=== PATIENT | male | born 1995 | race African-American/Black ===

== ENCOUNTER 2020-12-19 06:56 | Inpatient (IN) ==
[2020-12-19] MEDS ORDERED: Mag Hydrox/Al Hydrox/Simeth 30 ML UDC PO PRN (10:00)
[2020-12-19] MEDS ORDERED: Ibuprofen 400 MG TABLET PO PRN (10:00)
[2020-12-19] MEDS ORDERED: *HR* LORazepam 2 MG/ML VIAL IM PRN (10:00)
[2020-12-19] MEDS ORDERED: Nicotine 2 MG GUM BC PRN (10:00)
[2020-12-19] MEDS ORDERED: MOM Conc 10 ML UD.LIQ PO PRN (10:00)
[2020-12-19] MEDS ORDERED: *HR* LORazepam 1 MG TABLET PO PRN (10:00)
[2020-12-19] MEDS ORDERED: haloperidoL 5 MG TABLET PO PRN (10:00)
[2020-12-19] MEDS ORDERED: Haloperidol Lactate 5 MG/ML VIAL IM PRN (10:00)
[2020-12-19 10:46] LABS: Influenza A PCR Negative (Negative); Influenza B PCR Negative (Negative); Resp. Syncytial Virus PCR Negative (Negative); SARS-CoV-2 by PCR (In House) Negative (Negative)
[2020-12-19] MEDS ORDERED: ARIPiprazole 400 MG SUSER.SYR IM SCH (13:15)
[2020-12-19] MEDS: traZODone 50 MG TABLET PO PRN (20:34)
[2020-12-19] MEDS: ARIPiprazole 10 MG TABLET PO SCH (20:34)
[2020-12-19] MEDS: hydrOXYzine pamoate 25 MG CAPSULE PO PRN (20:34)
[2020-12-20] MEDS: traZODone 50 MG TABLET PO PRN (20:03)
[2020-12-20] MEDS: ARIPiprazole 10 MG TABLET PO SCH (20:03)
[2020-12-20] MEDS: hydrOXYzine pamoate 25 MG CAPSULE PO PRN (20:03)
[2020-12-21 09:22] VITALS: BP 122/77; PULSE 57; TEMP 98.4; O2SAT 100
== END 2020-12-21 12:30 | disposition home or self-care (01) | DRG 753 ==
LOC: EMEROOARM 06:56 → 1ANU 11:00
PROVIDERS: ADMIT Psychiatry & Neurology Psychiatry; ATTEND Psychiatry & Neurology Psychiatry

== ENCOUNTER 2021-01-05 10:03 | Inpatient (IN) ==
[2021-01-05] MEDS ORDERED: *HR* LORazepam 2 MG/ML VIAL ONE (10:11)
[2021-01-05] MEDS ORDERED: *HR* LORazepam 2 MG/ML VIAL IVP STA (10:22)
[2021-01-05] MEDS ORDERED: *HR* LORazepam 2 MG/ML VIAL IVP ONE (10:23)
[2021-01-05] MEDS ORDERED: 0.9 % Sodium Chloride 1,000 ML IVC ONE ×3 (10:37→12:30)
[2021-01-05 11:09] LABS: Basophils # 0.1 K/mcL (0.0-0.2); Basophils % 0.6 %; Eosinophils # 0.2 K/mcL (0.0-0.6); Hemoglobin 16.7 g/dL (12.9-16.9); Immature Granulocytes % 2.1 % (0-4); Lymphocytes # 3.7 K/mcL (0.6-4.6); Lymphocytes % 15.8 %; Mean Corpuscular HGB Conc 29.3 g/dL (31.6-35.5); Mean Corpuscular Hemoglobin 26.5 pg (28.0-33.3); Mean Corpuscular Volume 90.3 fL (83.0-100.0); Mean Platelet Volume 10.7 fL (9.4-12.4); Monocytes # 1.4 K/mcL (0.0-1.3); Monocytes % 5.8 %; Neutrophils # 17.5 K/mcL (1.6-8.9); Platelet Count 345 K/mcL (140-400); Red Blood Count 6.31 M/mcL (4.19-5.50); Segmented Neutrophils % 74.7 %; White Blood Count 23.4 K/mcL (4.3-11.1)
[2021-01-05 11:19] LABS: VBG HCO3 21 mEq/L (21-27); VBG PCO2 98 mmHg (41-51); VBG PH 6.93 pH Units (7.32-7.42); VBG PO2 39 mmHg (25-50)
[2021-01-05 12:01] LABS: VBG HCO3 24 mEq/L (21-27); VBG PCO2 86 mmHg (41-51); VBG PH 7.05 pH Units (7.32-7.42); VBG PO2 46 mmHg (25-50)
[2021-01-05 12:03] LABS: Prothrombin Time 11.6 Seconds (9.4-12.1)
[2021-01-05 12:06] LABS: Activated Partial Thrombo Time 38.8 Seconds (26.0-36.0)
[2021-01-05 12:11] LABS: Acetaminophen < 10 mcg/mL (10-20); Alanine Aminotransferase 220 Units/L (7-52); Albumin 5.1 g/dL (3.5-5.7); Albumin/Globulin Ratio 1.7 (1.1-2.2); Alkaline Phosphatase 31 Units/L (34-104); Aspartate Amino Transferase 294 Units/L (13-39); BUN/Creatinine Ratio 8 (6-26); Bilirubin,Direct 0.2 mg/dL (0.0-0.2); Bilirubin,Indirect 0.7 mg/dL (0.0-1.0); Bilirubin,Total 0.9 mg/dL (0.3-1.0); Blood Urea Nitrogen 15 mg/dL (8-23); Calcium 10.8 mg/dL (8.6-10.3); Carbon Dioxide 23 mEq/L (23-29); Chloride 100 mEq/L (98-107); Creatine Kinase 196 Units/L (30-223); Ethanol < 10 mg/dL (Less than 10); Glucose 228 mg/dL (70-105); Osmolality,Calculated 304 (280-300); Potassium 4.6 mEq/L (3.5-5.1); Salicylate < 2.5 mg/dL (15.0-30.0); Sodium 143 mEq/L (136-145); Total Protein 8.1 g/dL (6.4-8.9); Troponin I 0.55 ng/mL (< 0.04); eGFR For African Americans 39 (> 60); eGFR For Non-African Americans 33 (> 60)
[2021-01-05] MEDS ORDERED: Ampicillin/Sulbactam 3,000 MG in 0.9 % Sodium Chloride Mini Bag 100 ML IVPB ONE (12:42)
[2021-01-05] MEDS ORDERED: Vancomycin 1,250 MG/262.5 ML IV.SOLN IVPB ONE (12:46)
[2021-01-05] MEDS ORDERED: Cefepime HCl 2,000 MG in 0.9 % Sodium Chloride Mini Bag 100 ML IVPB STA (12:46)
[2021-01-05 12:52] LABS: Influenza A PCR Negative (Negative); Influenza B PCR Negative (Negative); Resp. Syncytial Virus PCR Negative (Negative)
[2021-01-05 12:53] LABS: SARS-CoV-2 by PCR (In House) Negative (Negative)
[2021-01-05 12:57] LABS: Amphetamine Screen,Urine Negative ng/mL (Cutoff=1000); Barbiturate Screen,Urine Negative ng/mL (Cutoff=200)
[2021-01-05 12:58] LABS: Benzodiazepines Screen,Urine Negative ng/mL (Cutoff=300); Cannabinoid Screen,Urine Negative ng/mL (Cutoff = 50); Cocaine Screen,Urine Positive ng/mL (Cutoff= 300); Opiate Screen,Urine Negative ng/mL (Cutoff=300); Phencyclidine Screen,Urine Negative ng/mL (Cutoff=25)
[2021-01-05] MEDS ORDERED: 0.9 % Sodium Chloride 500 ML IVC ONE (13:33)
[2021-01-05 13:39] LABS: Bacteria,Urine Few per hpf (None-Few); Bilirubin,Urine Negative (Negative); Blood,Urine Trace (Negative); Clarity,Urine Clear (Clear); Color,Urine Colorless (Yellow); Glucose,Urine (UA) 70 mg/dL (Normal); Ketones,Urine Negative (Negative); Leukocyte Esterase,Urine Negative (Negative); Mucus,Urine Few per lpf (None-Few); Nitrite,Urine Negative (Negative); PH,Urine 5.5 pH Units (5.0-8.0); Protein,Urine Trace mg/dL (Neg-Trace); RBC,Urine 0-3 per hpf (0-3); Specific Gravity,Urine 1.008 (1.010-1.025); Sperm,Urine Present per hpf (None Seen); Squamous Epithelial Cell,Urine Few per hpf (None-Few); Urobilinogen,Urine Normal (Normal); WBC,Urine 0-3 per hpf (0-3)
[2021-01-05 14:07] LABS: VBG HCO3 26 mEq/L (21-27); VBG PCO2 82 mmHg (41-51); VBG PH 7.11 pH Units (7.32-7.42); VBG PO2 38 mmHg (25-50)
[2021-01-05 18:02] LABS: ABG Base Excess 1 mEq/L (-2 to 3); ABG HCO3 29 mEq/L (21-27); ABG Oxygen Saturation 100 % (95-98); ABG PCO2 60 mmHg (35-45); ABG PH 7.28 pH Units (7.32-7.45); ABG PO2 344 mmHg (85-104); ABG TCO2 30 mEq/L (20-26); Blood Gas Modality BiLevel
[2021-01-05 18:13] LABS: Basophils % 0.1 %; Eosinophils % 0.1 %; Immature Granulocytes % 0.5 % (0-4); Red Cell Distribution Width 13.9 % (11.5-14.5)
[2021-01-05 18:16] LABS: Hemoglobin 13.6 g/dL (12.9-16.9); Lymphocytes # 0.8 K/mcL (0.6-4.6); Lymphocytes % 9.3 %; Mean Corpuscular HGB Conc 31.6 g/dL (31.6-35.5); Mean Corpuscular Hemoglobin 26.6 pg (28.0-33.3); Mean Corpuscular Volume 84.1 fL (83.0-100.0); Mean Platelet Volume 11.2 fL (9.4-12.4); Monocytes # 0.6 K/mcL (0.0-1.3); Monocytes % 6.7 %; Neutrophils # 7.1 K/mcL (1.6-8.9); Platelet Count 213 K/mcL (140-400); Red Blood Count 5.11 M/mcL (4.19-5.50); Segmented Neutrophils % 83.3 %; White Blood Count 8.5 K/mcL (4.3-11.1)
[2021-01-05 18:32] LABS: BUN/Creatinine Ratio 13 (6-26); Blood Urea Nitrogen 14 mg/dL (6-20); Calcium 7.9 mg/dL (8.6-10.3); Carbon Dioxide 24 mEq/L (23-29); Chloride 107 mEq/L (98-107); Glucose 49 mg/dL (70-105); Osmolality,Calculated 286 (280-300); Potassium 4.4 mEq/L (3.5-5.1); Sodium 139 mEq/L (136-145); eGFR For African Americans > 60 (> 60); eGFR For Non-African Americans > 60 (> 60)
[2021-01-05 18:39] LABS: Troponin I 0.41 ng/mL (< 0.04)
[2021-01-05] MEDS ORDERED: *HR* Dextrose 50 % in Water (Syg) 50 ML SYRINGE ONE (18:44)
[2021-01-05] MEDS ORDERED: *HR* Dextrose 50 % in Water (Syg) 50 ML SYRINGE IVP ONE (18:52)
[2021-01-05] MEDS ORDERED: 0.9 % Sodium Chloride 1,000 ML ONE (19:04)
[2021-01-05] MEDS ORDERED: 0.9 % Sodium Chloride 1,000 ML IV ONE (19:07)
[2021-01-05] MEDS ORDERED: *HR* Heparin 5,000 UNIT/ML VIAL IVP PRN (19:20)
[2021-01-05] MEDS ORDERED: *HR* Heparin 5,000 UNIT/ML VIAL IVP ONE (19:20)
[2021-01-05 20:02] LABS: Hepatitis B Surface Antigen Nonreactive (Nonreactive)
[2021-01-05] MEDS: Heparin 25,000UNIT/250ML 1/2NS 25,000 UNIT/250 ML IV.SOLN IVC SCH (20:06)
[2021-01-05 20:16] LABS: Heparin anti-factor XA UFH < 0.04 IU/mL (0.30-0.70)
[2021-01-05 20:17] LABS: INR 1.1; Prothrombin Time 12.8 Seconds (9.4-12.1)
[2021-01-05 20:30] LABS: Hepatitis B Core IgM Nonreactive (Nonreactive)
[2021-01-05 20:31] LABS: Hepatitis C Virus Antibody Nonreactive (Nonreactive)
[2021-01-05 20:32] LABS: Hepatitis A Antibody IgM Nonreactive (Nonreactive)
[2021-01-05] MEDS ORDERED: Naloxone 0.4 MG/ML INJ IVP PRN (23:00)
[2021-01-05] MEDS ORDERED: Ondansetron 4 MG/2 ML VIAL IVP PRN (23:00)
[2021-01-05] MEDS ORDERED: Perflutren Lipid Microsphere 1.3 ML in 0.9 % Sodium Chloride 8.7 ML IVP PRN (23:02)
[2021-01-06 02:03] LABS: Basophils % 0.1 %; Eosinophils # 0.1 K/mcL (0.0-0.6); Eosinophils % 0.8 %; Hematocrit 43.1 % (37.5-50.1); Hemoglobin 13.5 g/dL (12.9-16.9); Immature Granulocytes % 0.2 % (0-4); Lymphocytes # 1.3 K/mcL (0.6-4.6); Lymphocytes % 14.4 %; Mean Corpuscular HGB Conc 31.3 g/dL (31.6-35.5); Mean Corpuscular Hemoglobin 26.5 pg (28.0-33.3); Mean Corpuscular Volume 84.7 fL (83.0-100.0); Mean Platelet Volume 10.5 fL (9.4-12.4); Monocytes # 0.6 K/mcL (0.0-1.3); Monocytes % 6.8 %; Neutrophils # 6.8 K/mcL (1.6-8.9); Platelet Count 189 K/mcL (140-400); Red Blood Count 5.09 M/mcL (4.19-5.50); Segmented Neutrophils % 77.7 %; White Blood Count 8.8 K/mcL (4.3-11.1)
[2021-01-06 02:11] LABS: INR 1.1; Prothrombin Time 12.8 Seconds (9.4-12.1)
[2021-01-06 02:25] LABS: BUN/Creatinine Ratio 12 (6-26); Blood Urea Nitrogen 14 mg/dL (6-20); Calcium 8.8 mg/dL (8.6-10.3); Carbon Dioxide 27 mEq/L (23-29); Chloride 106 mEq/L (98-107); Chol/HDL Ratio 2.7 (0-4.9); Cholesterol 125 mg/dL (< 200); Glucose 86 mg/dL (70-105); HDL Cholesterol 46 mg/dL (40-59); LDL Cholesterol,Calculated 74 mg/dL (< 100); Magnesium 1.7 mg/dL (1.6-2.6); Osmolality,Calculated 288 (280-300); Potassium 4.4 mEq/L (3.5-5.1); Sodium 139 mEq/L (136-145); Triglycerides 26 mg/dL (< 150); eGFR For African Americans > 60 (> 60); eGFR For Non-African Americans > 60 (> 60)
[2021-01-06 02:42] LABS: Thyroid Stimulating Hormone 0.667 mcIU/mL (0.340-5.600); Troponin I 0.31 ng/mL (< 0.04)
[2021-01-06] MEDS: Cefepime HCl 2,000 MG in Water for inj. (sterile) 20 ML IVP SCH ×2 (05:07→17:54)
[2021-01-06] MEDS: *HR* Heparin 5,000 UNIT/ML VIAL IVP PRN (10:18)
[2021-01-06] MEDS: Heparin 25,000UNIT/250ML 1/2NS 25,000 UNIT/250 ML IV.SOLN IVC SCH (17:54)
[2021-01-07 01:16] LABS: Basophils % 0.3 %; Eosinophils # 0.2 K/mcL (0.0-0.6); Eosinophils % 2.6 %; Hematocrit 42.1 % (37.5-50.1); Hemoglobin 13.4 g/dL (12.9-16.9); Immature Granulocytes % 0.3 % (0-4); Lymphocytes # 1.8 K/mcL (0.6-4.6); Lymphocytes % 24.9 %; Mean Corpuscular HGB Conc 31.8 g/dL (31.6-35.5); Mean Corpuscular Hemoglobin 26.3 pg (28.0-33.3); Mean Corpuscular Volume 82.7 fL (83.0-100.0); Mean Platelet Volume 11.4 fL (9.4-12.4); Monocytes # 0.7 K/mcL (0.0-1.3); Monocytes % 10.1 %; Neutrophils # 4.4 K/mcL (1.6-8.9); Platelet Count 178 K/mcL (140-400); Red Blood Count 5.09 M/mcL (4.19-5.50); Red Cell Distribution Width 13.4 % (11.5-14.5); Segmented Neutrophils % 61.8 %
[2021-01-07 01:32] LABS: Alanine Aminotransferase 76 Units/L (7-52); Albumin 3.6 g/dL (3.5-5.7); Albumin/Globulin Ratio 1.6 (1.1-2.2); Alkaline Phosphatase 18 Units/L (34-104); Aspartate Amino Transferase 36 Units/L (13-39); BUN/Creatinine Ratio 8 (6-26); Bilirubin,Direct 0.1 mg/dL (0.0-0.2); Bilirubin,Indirect 0.6 mg/dL (0.0-1.0); Bilirubin,Total 0.7 mg/dL (0.3-1.0); Blood Urea Nitrogen 8 mg/dL (6-20); Calcium 8.8 mg/dL (8.6-10.3); Carbon Dioxide 29 mEq/L (23-29); Chloride 103 mEq/L (98-107); Globulin 2.3 g/dL (2.4-3.5); Glucose 94 mg/dL (70-105); Osmolality,Calculated 284 (280-300); Potassium 3.6 mEq/L (3.5-5.1); Sodium 138 mEq/L (136-145); Total Protein 5.9 g/dL (6.4-8.9); eGFR For African Americans > 60 (> 60); eGFR For Non-African Americans > 60 (> 60)
[2021-01-07] MEDS: Cefepime HCl 2,000 MG in Water for inj. (sterile) 20 ML IVP SCH (06:23)
[2021-01-07] MEDS: *HR* Heparin 5,000 UNIT/ML VIAL IVP PRN (07:23)
[2021-01-07 08:22] VITALS: BP 134/84; PULSE 60; TEMP 98.4; O2SAT 97
== END 2021-01-07 14:02 | disposition home or self-care (01) | DRG 720 ==
LOC: 2NNU 10:03 → EMEROOARM 10:03 → SUATTDRO 22:34 → OBSVTOIN 22:34 → MERGE 22:34 → 2NNU 23:15 → 3BNU 01-07 06:07
PROVIDERS: ADMIT Internal Medicine; ATTEND Student in an Organized Health Care Education/Training Program